=== PATIENT | female | born 1960 | race Caucasian/White ===

== ENCOUNTER 2019-11-17 10:19 | Emergency (ER) | payer OTHER ==
[~2019-11-17] VITALS: Ht 149.9 cm; Wt 39.5 kg
[~2019-11-17 10:19] MED LIST: NO HOME MEDICATION.; NORCO 5-325 TA1 EACH PO; SILVADENE20 GM TP
[2019-11-17 11:58] LABS: ABSOLUTE BASOPHILS 0.1 thou/uL (0.0-0.2); ABSOLUTE EOSINOPHILS 0.1 thou/uL (0.0-0.7); ABSOLUTE LYMPHOCYTES 1.5 thou/uL (0.8-5.3); ABSOLUTE MONOCYTES 0.6 thou/uL (0.0-1.2); ABSOLUTE NEUTROPHILS 4.8 thou/uL (1.6-8.1); BASOPHILS 1.3 %; HEMATOCRIT 40.9 % (37.0-47.0); HEMOGLOBIN 14.2 gm/dL (12.0-15.0); LYMPHOCYTES 20.7 %; MCH 33.2 pg (26.0-34.0); MCHC 34.6 g/dL (28.0-37.0); MONOCYTES 9.2 %; MPV 6.7 fl. (7.2-11.1); NUCLEATED RBCS 0 /100WBC; PLATELET COUNT* 266 thou/uL (150-400); POLYS 67.8 %; RBC 4.26 mil/uL (4.20-5.00); RDW-CV 13.4 % (10.5-14.5)
[2019-11-17 12:08] LABS: APTT 24.7 Seconds (25.0-31.3); CALCIUM 8.1 mg/dL (8.5-10.1); CREATININE 0.6 mg/dL (0.6-1.3); POTASSIUM 4.1 mmol/L (3.5-5.1); PROTIME 10.7 Seconds (9.20-11.50)
[2019-11-17 12:12] LABS: ALBUMIN 3.7 g/dL (3.4-5.0); TOTAL BILIRUBIN 0.4 mg/dL (<0.1-1.0); TOTAL PROTEIN 8.4 g/dL (6.4-8.2)
[2019-11-17 13:52] LABS: AMP/METHAMP Negative (Negative); BARBITURATES Negative (Negative); BENZODIAZEPINES Negative (Negative); COCAINE Negative (Negative); METHADONE Negative (Negative); OPIATES Negative (Negative); PCP Negative (Negative); THC POSITIVE (Negative)
[2019-11-17 19:44] VITALS: BP 114/76
--- NOTE | 2019-11-19 13:57 | EKG ---
[place] [address] ELECTROCARDIOGRAM REPORT Name: PRINCESS TELLO [id number] Admission: 11/17/19 Attend Phys: Discharge: 11/17/19 Date of : 62 Date of Service: 11/17/19 1857 Report #: [id number] THIS REPORT FOR: cc: FAM - No family physician/PCP FAM - No family physician/PCP Asad Gloria MD [facility] ~ THIS REPORT FOR: //name// [facility] ED Test Date: 2019-11-17 Test Time: 18:57:53 Pat Name: PRINCESS TELLO Department: Room: Gender: F Re Recording Mixer: : 1960 Requested By: Regine Fraser Order Number: [id number] : Asad Gloria Measurements Intervals [place] Rate: 72 P: 145 ND: 141 QRS: -37 QRSD: 98 T: 146 QT: 441 QTc: 483 Interpretive Statements Sinus or ectopic atrial rhythm Left atrial enlargement Left axis deviation Low voltage, extremity leads Nonspecific T abnrm, anterolateral leads Borderline prolonged QT interval Lead(s) II were not used for morphology analysis Compared to ECG 09/17/2011 15:04:00 Ectopic atrial rhythm now present Atrial abnormality now present Left-axis deviation now present Low QRS voltage now present Sinus rhythm no longer noted Electronically Signed On 11-18-2019 12:49:13 BOARD WORKER by Asad Gloria [email or web address] <ELECTRONICALLY SIGNED> By: Asad Gloria MD, [facility] 11/18/19 1249 56 56 Asad Gloria MD, [facility] /EPI
== END 2019-11-17 19:44 | disposition home or self-care (01) ==
LOC: M.ERS 10:19
PROVIDERS: Physician Assistant
DX: F10.129 Alcohol abuse with intoxication, unspecified (principal); M25.552 Pain in left hip; R94.5 Abnormal results of liver function studies; Z90.710 Acquired absence of both cervix and uterus; Z98.890 Other specified postprocedural states; Z88.5 Allergy status to narcotic agent; W18.39XA Other fall on same level, initial encounter; Y92.89 Other specified places as the place of occurrence of the external cause; Y93.89 Activity, other specified; Y99.8 Other external cause status

== ENCOUNTER 2021-05-16 10:22 | Emergency (ER) | payer OTHER ==
[~2021-05-16] VITALS: Ht 124.5 cm; Wt 52.2 kg
[2021-05-16 12:55] LABS: URINE BILIRUBIN NEGATIVE (Negative); URINE BLOOD TRACE (Negative); URINE CLARITY CLEAR; URINE COLOR YELLOW; URINE GLUCOSE-RANDOM NEGATIVE (Negative); URINE KETONES NEGATIVE (Negative); URINE LEUKOCYTES-REFLEX NEGATIVE (Negative); URINE NITRITE-REFLEX NEGATIVE (Negative); URINE PROTEIN NEGATIVE (Negative); URINE SPECIFIC GRAVITY <= 1.005 (1.005-1.030); URINE UROBILINOGEN 0.2 E.U./dl (0.2-1.0)
[2021-05-16] MEDS ORDERED: ONDANSETRON ODT4 MG PO (13:06)
[2021-05-16] MEDS ORDERED: IBUPROFEN 600600 M1 PO (13:06)
[2021-05-16] MEDS ORDERED: APAP W/CODEINE1 TA2 PO (13:06)
[2021-05-16 13:20] VITALS: BP 147/56
== END 2021-05-16 13:20 | disposition home or self-care (01) ==
LOC: M.ERS 10:22
PROVIDERS: Physician Assistant
DX: J06.9 Acute upper respiratory infection, unspecified (principal); Z20.822 Contact with and (suspected) exposure to COVID-19; Z90.710 Acquired absence of both cervix and uterus; Z88.5 Allergy status to narcotic agent

== ENCOUNTER 2021-07-24 14:52 | Emergency (ER) | payer OTHER ==
[~2021-07-24] VITALS: Ht 149.9 cm; Wt 45.4 kg
[~2021-07-24 14:52] MED LIST changes: +APAP W/CODEINE1 TA2 PO; +IBUPROFEN 600600 M1 PO; +ONDANSETRON ODT4 MG PO
[2021-07-24 15:18] LABS: URINE BILIRUBIN NEGATIVE (Negative); URINE BLOOD 1+ (Negative); URINE CLARITY CLEAR; URINE COLOR YELLOW; URINE GLUCOSE-RANDOM NEGATIVE (Negative); URINE KETONES 2+ (Negative); URINE LEUKOCYTES-REFLEX NEGATIVE (Negative); URINE NITRITE-REFLEX NEGATIVE (Negative); URINE PROTEIN NEGATIVE (Negative); URINE SPECIFIC GRAVITY >= 1.030 (1.005-1.030); URINE UROBILINOGEN 0.2 E.U./dl (0.2-1.0)
[2021-07-24 15:20] LABS: ABSOLUTE BASOPHILS 0.1 thou/uL (0.0-0.2); ABSOLUTE LYMPHOCYTES 0.7 thou/uL (0.8-5.3); ABSOLUTE MONOCYTES 0.3 thou/uL (0.0-1.2); ABSOLUTE NEUTROPHILS 4.2 thou/uL (1.6-8.1); BASOPHILS 1.3 %; HEMOGLOBIN 12.8 gm/dL (12.0-15.0); LYMPHOCYTES 12.7 %; MCH 33.6 pg (26.0-34.0); MCHC 33.6 g/dL (28.0-37.0); MCV 99.9 fL (80.0-100.0); MONOCYTES 6.2 %; MPV 6.4 fl. (7.2-11.1); NUCLEATED RBCS 0 /100WBC; PLATELET COUNT* 208 thou/uL (150-400); POLYS 79.8 %; RBC 3.81 mil/uL (4.20-5.00); RDW-CV 14.8 % (10.5-14.5); WBC 5.2 thou/uL (4.0-11.0)
[2021-07-24 15:30] LABS: BACTERIA-REFLEX 1-9 Few /HPF (None Seen); CRYSTALS None Seen /LPF (None Seen); HYALINE CASTS 0-3 Few /LPF (None Seen); MUCUS None Seen strn/LPF (None Seen); SQUAMOUS 4-10 Moderate /LPF (0-3); URINE RBC 0-2 Rare /HPF (0-2); URINE WBC-REFLEX 0-5 Rare /HPF (0-5)
[2021-07-24 15:33] LABS: CALCIUM 7.8 mg/dL (8.5-10.1); POTASSIUM 4.5 mmol/L (3.5-5.1)
[2021-07-24 15:37] LABS: ALBUMIN 3.8 g/dL (3.4-5.0); TOTAL BILIRUBIN 0.8 mg/dL (<0.1-1.0); TOTAL PROTEIN 8.4 g/dL (6.4-8.2)
[2021-07-24] MEDS ORDERED: ONDANSETRON ODT4 MG PO (16:56)
[2021-07-24 17:02] VITALS: BP 144/90
--- NOTE | 2021-07-25 16:06 | EKG ---
[place] [address] ELECTROCARDIOGRAM REPORT Name: PRINCESS TELLO Room: [facility]#: [id number] Admission: 07/24/21 Attend Phys: Discharge: 07/24/21 Date of : 62 Date of Service: 07/24/21 1507 Report #: [id number] THIS REPORT FOR: //name// [facility] ED Test Date: 2021-07-24 Test Time: 15:07:08 Pat Name: PRINCESS TELLO Department: Room: Gender: F Traffic Worker: : 1960 Requested By: Regine Fraser Order Number: [id number] MD: Chuck Saucedo Measurements Intervals [place] Rate: 95 P: 66 MT: 132 QRS: -5 QRSD: 135 T: 68 QT: 372 QTc: 468 Interpretive Statements Sinus rhythm Nonspecific intraventricular conduction delay Borderline T abnormalities, anterior leads Compared to ECG 11/17/2019 18:57:53 Intraventricular conduction delay now present Ectopic atrial rhythm no longer present Atrial abnormality no longer present Left-axis deviation no longer present Electronically Signed On 07-25-2021 16:05:49 CDT by Chuck Saucedo [email or web address] <ELECTRONICALLY SIGNED> By: Chuck Saucedo MD, FACC 07/25/21 1605 1507 1507 Chuck Saucedo MD, FACC /EPI
== END 2021-07-24 16:51 | disposition home or self-care (01) ==
LOC: M.ERS 14:52
PROVIDERS: Physician Assistant
DX: R10.9 Unspecified abdominal pain (principal); F10.20 Alcohol dependence, uncomplicated; R94.5 Abnormal results of liver function studies; Z98.890 Other specified postprocedural states; Z90.711 Acquired absence of uterus with remaining cervical stump; Z79.899 Other long term (current) drug therapy; Z88.8 Allergy status to other drugs, medicaments and biological substances; Y90.9 Presence of alcohol in blood, level not specified

== ENCOUNTER 2021-08-17 21:27 | Inpatient (IN) | payer OTHER ==
[~2021-08-17] VITALS: Ht 149.9 cm; Wt 47.6 kg
--- NOTE | ~2021-08-17 | PROC ---
[address] [address] PROCEDURE REPORT Name: PRINCESS TELLO Room: [address] ADM IN M.R.#: [id number] Admission: 08/18/21 Attend Phys: Brent Barnard Discharge: Date of : 62 Report #: [id number] THIS REPORT FOR: cc: FAM - No family physician/PCP FAM - No family physician/PCP [facility],Medical Records Staff ~ For GI report, please see the Provation report in Perceptive 7 content. By: 0705Medical Records Staff LUPE /BOBBY
[2021-08-17 21:47] VITALS: BP 157/90
[2021-08-17 23:34] LABS: ABSOLUTE LYMPHOCYTES 0.6 thou/uL (0.8-5.3); ABSOLUTE MONOCYTES 0.3 thou/uL (0.0-1.2); ABSOLUTE NEUTROPHILS 2.6 thou/uL (1.6-8.1); BASOPHILS 0.4 %; EOSINOPHILS 1.2 %; HEMATOCRIT 37.7 % (37.0-47.0); HEMOGLOBIN 12.9 gm/dL (12.0-15.0); LYMPHOCYTES 15.8 %; MCH 32.9 pg (26.0-34.0); MCHC 34.1 g/dL (28.0-37.0); MCV 96.4 fL (80.0-100.0); MONOCYTES 9.2 %; MPV 6.6 fl. (7.2-11.1); NUCLEATED RBCS 0 /100WBC; PLATELET COUNT* 180 thou/uL (150-400); POLYS 73.4 %; RBC 3.91 mil/uL (4.20-5.00); RDW-CV 13.6 % (10.5-14.5); WBC 3.6 thou/uL (4.0-11.0)
[2021-08-17 23:42] LABS: CALCIUM 8.7 mg/dL (8.5-10.1); CREATININE 0.6 mg/dL (0.6-1.3); POTASSIUM 4.4 mmol/L (3.5-5.1)
[2021-08-17 23:50] LABS: ALBUMIN 3.3 g/dL (3.4-5.0); TOTAL BILIRUBIN 1.5 mg/dL (<0.1-1.0); TOTAL PROTEIN 7.8 g/dL (6.4-8.2)
[2021-08-17 23:51] LABS: ACETAMINOPHEN < 2 ug/mL (10-30); ALCOHOL < 10 mg/dL (<10); SALICYLATE < 2.8 mg/dL (2.8-20.0)
--- NOTE | 2021-08-17 23:52 | NUR ---
PATIENT HAD A SEIZURE LASTING 1 MINUTE. PATIENT SATS DROPPED TO 72%, OXYGEN APPLIED. DR. CEE CALLED TO THE ROOM. PATIENT COULD NOT REMEMBER EVENTS PRIOR TO SEIZURE. PATIENT MOVED TO A ROOM CLOSER TO THE NURSES STATION, SEIZURE PADS APPLIED TO THE BED. WILL CONTINUE TO MONITOR.
[2021-08-18 02:01] LABS: URINE BILIRUBIN NEGATIVE (Negative); URINE BLOOD TRACE (Negative); URINE CLARITY CLEAR; URINE COLOR YELLOW; URINE GLUCOSE-RANDOM 1+ (Negative); URINE KETONES 1+ (Negative); URINE LEUKOCYTES-REFLEX NEGATIVE (Negative); URINE NITRITE-REFLEX NEGATIVE (Negative); URINE PROTEIN NEGATIVE (Negative); URINE SPECIFIC GRAVITY 1.015 (1.005-1.030); URINE UROBILINOGEN 0.2 E.U./dl (0.2-1.0)
[2021-08-18 02:10] LABS: AMP/METHAMP Negative (Negative); BARBITURATES Negative (Negative); BENZODIAZEPINES Negative (Negative); COCAINE Negative (Negative); METHADONE Negative (Negative); OPIATES Negative (Negative); PCP Negative (Negative); THC Negative (Negative)
[2021-08-18 02:57] LABS: MAGNESIUM 1.7 mg/dL (1.8-2.4); PHOSPHORUS* 3.4 mg/dL (2.5-4.9)
[2021-08-18 06:25] VITALS: BP 129/79
--- NOTE | 2021-08-18 07:15 | NUR ---
PT APPEARS TO BE SLEEPING AND SNORING AT THIS TIME.
--- NOTE | 2021-08-18 09:13 | EKG ---
[place] [address] ELECTROCARDIOGRAM REPORT Name: PRINCESS TELLO Room: [place] [address] ADM IN [facility].#: [id number] Admission: 08/18/21 Attend Phys: Nemesio Boo Discharge: Date of : 62 Date of Service: 08/17/21 2316 Report #: [id number] THIS REPORT FOR: //name// [facility] ED Test Date: 2021-08-17 Test Time: 23:16:56 Pat Name: PRINCESS TELLO Department: Room: [facility] Gender: F [employer] Operations Consultant: : 1960 Requested By: Oxana Minaya Order Number: [id number] MD: Dhaval Carlos Measurements Intervals [place] Rate: 70 P: 48 TX: 134 QRS: -12 QRSD: 93 T: 24 QT: 440 QTc: 475 Interpretive Statements Sinus rhythm Nonspecific T wave abnormality Compared to ECG 07/24/2021 15:07:08 Intraventricular conduction delay no longer present Electronically Signed On 08-18-2021 9:13:33 INTEL RECRUITER by Dhaval Carlos [email or web address] <ELECTRONICALLY SIGNED> By: Dhaval Carlos MD, FACC 08/18/21 0913 2316 2316 Dhaval Carlos MD, FAC /EPI
[2021-08-18 10:25] VITALS: BP 151/88
[2021-08-18 12:40] LABS: HEMATOCRIT 36.3 % (37.0-47.0); HEMOGLOBIN 12.6 gm/dL (12.0-15.0); MCH 33.1 pg (26.0-34.0); MCHC 34.6 g/dL (28.0-37.0); MCV 95.7 fL (80.0-100.0); RBC 3.8 mil/uL (4.20-5.00); RDW-CV 13.3 % (10.5-14.5); WBC 3.6 thou/uL (4.0-11.0)
[2021-08-18 12:43] LABS: INR 1.1; PROTIME 11.5 Seconds (9.20-11.50)
[2021-08-18 12:46] LABS: ALBUMIN 2.9 g/dL (3.4-5.0); CREATININE 0.6 mg/dL (0.6-1.3); POTASSIUM 3.6 mmol/L (3.5-5.1); TOTAL BILIRUBIN 1.8 mg/dL (<0.1-1.0); TOTAL PROTEIN 7.2 g/dL (6.4-8.2)
[2021-08-18 14:25] VITALS: BP 145/93
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
[2021-08-18 17:30] VITALS: BP 145/93
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
[2021-08-18 21:30] VITALS: BP 143/88
[2021-08-19] VITALS: BP 124/78
[2021-08-19 04:00] VITALS: BP 135/92
[2021-08-19 04:36] LABS: HEMOGLOBIN 12.8 gm/dL (12.0-15.0); MCH 33.1 pg (26.0-34.0); MCHC 34.5 g/dL (28.0-37.0); MCV 96.1 fL (80.0-100.0); MPV 7.5 fl. (7.2-11.1); RBC 3.85 mil/uL (4.20-5.00); RDW-CV 13.5 % (10.5-14.5); WBC 3.2 thou/uL (4.0-11.0)
[2021-08-19 04:45] LABS: INR 1.1; PROTIME 11.6 Seconds (9.20-11.50)
[2021-08-19 04:50] LABS: ALBUMIN 2.8 g/dL (3.4-5.0); CALCIUM 7.7 mg/dL (8.5-10.1); CREATININE 0.5 mg/dL (0.6-1.3); POTASSIUM 3.3 mmol/L (3.5-5.1); TOTAL BILIRUBIN 1.5 mg/dL (<0.1-1.0); TOTAL PROTEIN 6.9 g/dL (6.4-8.2)
--- NOTE | 2021-08-19 05:33 | NUR ---
PT AO X4 STATING SHE HAD A STRESSFUL JOB AT THE [employer]. SHE STATES SHE HAD GONE 20+ DAYS WITHOUT A DRINK BUT WAS STRESSED AND STARTED DRINKING. SHE THEN STARTED VOMITING WITH BRIGHT RED BLOOD, SHE ALSO HAD BRBPR AND HER SISTER CALLED EMS TO BRING HER IN. EGD REVEALS SOME ESOPHAGEAL EROSIONS AND BIOPSY WAS TAKEN. PT SLEPT WELL AND CALLED APPROPRIATELY. CALL LIGHT IN REACH,
[2021-08-19 09:20] VITALS: BP 123/81
[2021-08-19 12:00] VITALS: BP 130/88
--- NOTE | 2021-08-19 12:04 | NUR ---
Nutrition: Pt admitted with hematemesis. Consult received for wt loss. Pt stated she usually weighs 90-110#, current wt 105#, she said she has not lost wt recently. She said she is hungry and has been eating well. Albumin 2.8. Chart reviewed. Mild nutrition risk.
--- NOTE | 2021-08-19 15:34 | NUR ---
PLAN OF CARE: PHYSICIAN INFORMS OF POSSIBLY D/C OVER THE WEEKEND. NO CM D/C PLANNING NEEDS ANTICIPATED. CM WILL REMAIN AVAILABLE TO ASSIST AND FOLLOW NEEDED.
[2021-08-19 16:00] VITALS: BP 134/90
[2021-08-19 20:00] VITALS: BP 122/71
[2021-08-20] VITALS (7 sets, daily range): BP systolic 114–145; BP diastolic 76–93
[2021-08-20 04:29] LABS: ABSOLUTE EOSINOPHILS 0.3 thou/uL (0.0-0.7); ABSOLUTE LYMPHOCYTES 0.9 thou/uL (0.8-5.3); ABSOLUTE MONOCYTES 0.3 thou/uL (0.0-1.2); ABSOLUTE NEUTROPHILS 1.9 thou/uL (1.6-8.1); BASOPHILS 1.4 %; EOSINOPHILS 7.6 %; HEMOGLOBIN 12.3 gm/dL (12.0-15.0); MCH 33.2 pg (26.0-34.0); MCHC 34.2 g/dL (28.0-37.0); MONOCYTES 8.2 %; MPV 7.5 fl. (7.2-11.1); NUCLEATED RBCS 0 /100WBC; PLATELET COUNT* 150 thou/uL (150-400); POLYS 55.8 %; RBC 3.71 mil/uL (4.20-5.00); RDW-CV 13.1 % (10.5-14.5); WBC 3.4 thou/uL (4.0-11.0)
[2021-08-20 04:47] LABS: ALBUMIN 2.5 g/dL (3.4-5.0); CREATININE 0.7 mg/dL (0.6-1.3); POTASSIUM 3.7 mmol/L (3.5-5.1); TOTAL PROTEIN 6.6 g/dL (6.4-8.2)
--- NOTE | 2021-08-20 05:08 | NUR ---
ASSUMED CARE OF PT AFTER REPORT AT 1930. PT A&OX4. VSS. PHYSICAL ASSESSMENT COMPLETED AND CHARTED. PT ON RA. PT TRACING SR ON TELE. PT UPSTANDBY TO RESTROOM. PT COMPLAINED OF ABDOMINAL PAIN-MED GIVEN PER DEC. WILL CHARTED. INSTRUCTED ON NPO POST MIDNIGHT ORDERED. FOR ABDOMINAL US TODAY. PT ABLE TO SLEEP WELL ON BED. FALL PRECAUTIONS IN PLACE. CALL LIGHT WITHIN REACH.
--- NOTE | 2021-08-20 05:10 | NUR ---
ASSUMED CARE OF PT AFTER REPORT AT 1930. PT A&OX4. VSS. PHYSICAL ASSESSMENT COMPLETED AND CHARTED. PT ON RA. PT TRACING SR/SB ON TELE. PT UPSTANDBY TO RESTROOM. PT COMPLAINED OF ABDOMINAL PAIN-MED GIVEN PER DEC. WILL CHARTED. FALL PRECAUTIONS IN PLACE. CALL LIGHT WITHIN REACH.
[2021-08-20] MEDS ORDERED: PRENATAL PO (07:29)
[2021-08-20] MEDS ORDERED: VITAMIN B-1100 M1 PO (07:29)
[2021-08-20] MEDS ORDERED: PROTONIX40 M2 PO (07:29)
[2021-08-20] MEDS ORDERED: CARAFATE 11 GM/10 M1 PO (07:29)
[2021-08-20 07:57] LABS: CALCIUM 7.7 mg/dL (8.5-10.1); CREATININE 0.6 mg/dL (0.6-1.3); MAGNESIUM 1.6 mg/dL (1.8-2.4); PHOSPHORUS* 2.7 mg/dL (2.5-4.9); POTASSIUM 3.6 mmol/L (3.5-5.1)
--- NOTE | 2021-08-20 11:12 | NUR ---
ASSUMED CARE OF PT THIS AM AROUND 0715- DRAW OFF WORKER IN PLACE ORDERED, TRACING SR- UPON ASSESSMENT PT NOTED TO BE RESTING IN BED- PT A&O X4, ANXIOUS; PT REPORTS TO BE FEELING JITTERY; PRN ATIVEN GIVEN THIS AM AT 0839- CONT OF B/B- SBA WITH TRANSFERS FOR PT SAFETY- LCTA, RESP EVEN AND UN- LABORED- VSS, O2 SAT 96% ON RA- ABD SOFT/ROUND/TENDER, BS X4 QUADS- LAST BM REPORTED 08/18/21- IV NOTED TO RIGHT FA INTACT WITH BANANA BAG INFUSSING PRESCIBED- IV ABT GIVEN THIS AM PRESCIBED- SCHEDULED TORADOL GIVEN FOR C/O ABD PAIN AND PT REPORTS MEDICATION TO BE EFFECTIVE- ABD US CANCELLED THIS AM PER GI WITH HEART HEALTHY DIET INITIATED; D/C PENDING FOR 08/21/21 IF PT ABLE TO TOLERATE DIET OVER NEXT 24 HOURS- MAG NOTED AT 1.6 AND IS CURRENLTY BEING REPLACED PER PROTOCOL- CIWA NOTED AT 1 THIS AM- SEIZKURE PRECAUTIONS IN PLACE INDICATED- CALL LIGHT AND PERSONAL BELONGINGS WITH IN REACH- HOURLY ROUNDS IN PLACE R/T SAFETY/NEEDS- ALL NEEDS MET AT THIS TIME
--- NOTE | 2021-08-20 11:55 | NUR ---
list of drug and alcohol treatment facilities given
[2021-08-20] MEDS ORDERED: LORAZEPAM 1 MG T1 MG PO (12:25)
[2021-08-20] MEDS ORDERED: HYDROXYZINE HCL25 M2 PO (12:25)
--- NOTE | 2021-08-20 20:27 | NUR ---
2024- Clarified statin drug to be taken at home. Dr. Boo wants the patient to take her usual statin drug Pravastatin per home dose and to disregard the atorvatain. Reviewed with patient and noted on discharge paper. Pt. verbalized understanding.
--- NOTE | 2021-08-21 03:58 | NUR ---
ASSUMED CARE OF PT AFTER REPORT AT 1930. PT A&OX4. VSS. PHYSICAL ASSESSMENT COMPLETED AND CHARTED. PT ON RA. PT TRACING SR ON TELE. PT UPSTANDBY TO RESTROOM. PT COMPLAINED OF ABDOMINAL PAIN-MED GIVEN PER DEC. NICK CHARTED. SEIZURE PRECAUTIONS IN PLACE. FALL PRECAUTIONS IN PLACE.
[2021-08-21 04:00] VITALS: BP 114/66
[2021-08-21 06:06] LABS: HEPATITIS B SURFACE AG Negative (Negative)
[2021-08-21 07:51] VITALS: BP 131/78
--- NOTE | 2021-08-21 09:11 | NUR ---
ASSUMED CARE OF PT THIS AM AROUND 0715- IT SERVICE MANAGER IN PLACE ORDERED, TRACING SR- UPON ASSESSMENT PT NOTED TO BE RESTING IN BED- PT A&O X4, GROGGY- CONT OF B/B- UP SBA IN ROOM FOR SAFETY- LCTA, RESP EVEN AND UN-LABORED- VSS, O2 SAT 96% ON RA-ABD SOFT/FLAT/NON-TENDER, BS X4 QUADS- LAST BM REPORTED X3 DAYS AGO- IV NOTED TO RIGHT FA INTACT, IVF INFUSSING PRESCRIBED-GOOD PO INTAKE NOTED THIS AM WITH BREAKFAST- CIWA NOTED AT 1, PRN HYDROXZINE GIVEN THIS AM- CALL LIGHT AND PERSONAL BELONGINGS WITH IN REACH- HOURLY ROUNDS IN PLACE R/T SAFETY/NEEDS- ALL NEEDS MET AT THIS TIME
[2021-08-21 10:42] VITALS: BP 131/78
[2021-08-21 11:40] VITALS: BP 131/78
[2021-08-21 12:29] VITALS: BP 131/78
--- NOTE | 2021-08-23 16:06 | PATH ---
[address] [address] PATHOLOGY RPT PROCEDURE Name: ARANZA TELLO Room: [address] IN M.R.#: [id number] Admission: 08/18/21 Date of : 62 Discharge: 08/21/21 Report #: [id number] Path Case #: [id number] [facility] Accession Number: [id number] . 01 Material submitted: . gastrointestinal site - PREPYLORIC EROSION . 01 Clinical history: . EGD IN OR . 02 Diagnosis: Prepyloric erosion: - Moderate chronic antral gastritis typical of reactive gastropathy (chemical gastritis), negative for Helicobacter pylori organisms, granulomas, and dysplasia. . (TRINY:mml; 08/22/2021) [facility] 08/22/2021 1617 Local . 02 Comment: Special stain: H. pylori immuno . (TRINY:mml; 08/22/2021) . 02 Electronically signed: . Dominik Gupta MD, Pathologist NPI- [id number] . 01 Gross description: . Received in formalin labeled "Aranza Tello, prepyloric erosion" are 2 iniguez-brown soft tissue fragments measuring in aggregate 0.5 x 0.2 x 0.1 cm. The specimen is submitted entirely in A1. ([facility]; 08/20/2021) [facility] 08/20/2021 1154 Local . 02 Pathologist provided ICD-10: K29.50 . 02 CPT . 884956, [id number] Specimen Comment: A courtesy copy of this report has been sent to [phone] Specimen Comment: [id number] Specimen Comment: Report sent to / DR LINDSEY Specimen Comment: A duplicate report has been generated due to demographic updates. Performed at: [address] [id number] [place] [address] PATHOLOGY RPT PROCEDURE Name: ARANZA TELLO Room: [address] IN .R.#: [id number] Admission: 08/18/21 Date of : 62 Discharge: 08/21/21 Report #: [id number] Path Case #: [id number] MD Lenny Spain MD Phone: [phone] Performed at: 02 [facility] [address], [place], [place] [id number] MD Dominik Gupta MD Phone: [phone]
== END 2021-08-21 12:30 | disposition home or self-care (01) | DRG 381 ==
LOC: M.ERS 21:27 → M.TBA-ER 08-18 02:24 → M.2W 08-18 02:24
PROVIDERS: Internal Medicine; Internal Medicine Gastroenterology; Nurse Practitioner Adult Health; Personal Emergency Response Attendant; ADMIT Internal Medicine; ATTEND Internal Medicine
PROC: 0DB58ZX Excision of Esophagus, Via Natural or Artificial Opening Endoscopic, Diagnostic (ICD-10-PCS; principal; 2021-08-18)
DX: K22.11 Ulcer of esophagus with bleeding (principal); E87.1 Hypo-osmolality and hyponatremia; D62 Acute posthemorrhagic anemia; K21.01 Gastro-esophageal reflux disease with esophagitis, with bleeding; K70.10 Alcoholic hepatitis without ascites; R74.01 Elevation of levels of liver transaminase levels; K21.9 Gastro-esophageal reflux disease without esophagitis; M81.0 Age-related osteoporosis without current pathological fracture; M19.90 Unspecified osteoarthritis, unspecified site; I10 Essential (primary) hypertension; K44.9 Diaphragmatic hernia without obstruction or gangrene; K31.9 Disease of stomach and duodenum, unspecified; F10.10 Alcohol abuse, uncomplicated; D72.819 Decreased white blood cell count, unspecified; Z20.822 Contact with and (suspected) exposure to COVID-19; Z90.710 Acquired absence of both cervix and uterus; Z88.6 Allergy status to analgesic agent; Z28.21 Immunization not carried out because of patient refusal